=== PATIENT | male | born 1990 | race Caucasian/White ===

== ENCOUNTER 2016-09-30 06:32 | Day surgery (SDC) | payer SELFPAY ==
[2016-09-30] MEDS ORDERED: Lactated Ringer's 1,000 ML IV ONE ×2 (07:08→08:50)
[2016-09-30] MEDS ORDERED: Lidocaine 1% Inj (20ml) ONE (07:29)
[2016-09-30] MEDS ORDERED: metroNIDAZOLE 500mg/100ml NS 0 ML IVPB ONE (07:29)
[2016-09-30] MEDS ORDERED: Bupivacaine 0.5% Inj(30mL) ONE (07:29)
--- NOTE | 2016-09-30 07:49 | CP.SDSHP ---
Same Day Surgery H & P - History Proposed Procedure: anal fistulectomy - Allergies Allergies: Allergies No Known Allergies Allergy (Verified 09/10/14 00:06) - Physical Exam Vital Signs: Vital Signs 09/30/16 09/30/16 07:00 07:03 Temperature 98.5 F Pulse Rate 66 66 Respiratory 20 Rate Blood Pressure 133/82 O2 Sat by Pulse 99 Oximetry Neuro: WNL Heart: WNL Lungs: WNL GI: WNL - {Optional Preform as Required} Abdomen: WNL Rectal: Other (anal fistula sinus) EDGE STRIPPER: Other (small anal fistula, draiing) - Impression Impression: anal fistula, will do fistulectomy - Date & Time Date: 09/30/16 Time: 07:48 Short Stay Discharge - Short Stay Discharge Admitting Diagnosis/Reason for Visit: K60.3 Disposition: HOME/ ROUTINE Referrals: FAMILY PROVIDER,NO [Primary Care Provider] -
[2016-09-30] MEDS ORDERED: Midazolam 2 MG/2 ML VIAL ONE (07:51)
[2016-09-30] MEDS ORDERED: Propofol 10 mg/ml Inj (20 ML) ONE (07:51)
[2016-09-30] MEDS ORDERED: Dexamethasone 4 mg/1 ml ONE (08:05)
[2016-09-30] MEDS ORDERED: Lactated Ringer's 1,000 ML IV SCH (08:21)
[2016-09-30] MEDS ORDERED: Hydrogen Peroxide 3% Soln (480ml) TP ONE (08:30)
[2016-09-30] MEDS ORDERED: Bupivacaine 0.5% 50 ML IJ ONE (08:36)
--- NOTE | 2016-09-30 08:53 | PCM.SURG1 ---
Surgeon's Initial Post Op Note - Surgeon's Notes Surgeon: Ranjith Svp [employer]: Odin PGY3, Debbie PGY1 Type of Anesthesia: General LMA, Local Pre-Operative Diagnosis: Anal fistula Operative Findings: Fistula 3 o'clock position Post-Operative Diagnosis: same Operation Performed: fistulectomy Specimen/Specimens Removed: none Estimated Blood Loss: EBL {In ML}: 10 Blood Products Given: N/A Drains Used: No Drains Post-Op Condition: Good Date of Surgery/Procedure: 09/30/16 Time of Surgery/Procedure: 08:53
--- NOTE | 2016-09-30 08:54 | CP.SDSHP ---
Same Day Surgery H & P - Allergies Allergies: Allergies No Known Allergies Allergy (Verified 09/10/14 00:06) - Physical Exam Vital Signs: Vital Signs 09/30/16 09/30/16 07:00 07:03 Temperature 98.5 F Pulse Rate 66 66 Respiratory 20 Rate Blood Pressure 133/82 O2 Sat by Pulse 99 Oximetry Short Stay Discharge - Short Stay Discharge Admitting Diagnosis/Reason for Visit: K60.3 Disposition: HOME/ ROUTINE Referrals: FAMILY PROVIDER,NO [Primary Care Provider] - Additional Instructions (Diet, Activity): Sitz baths
[2016-09-30 09:44] VITALS: RESP 20
[2016-09-30 10:08] VITALS: TEMP 98
[2016-09-30 10:17] VITALS: O2SAT 96
[2016-09-30 11:49] VITALS: BP 110/70; PULSE 96
--- NOTE | 2016-10-26 19:43 | OP ---
PROCEDURE DATE: 09/30/2016 OPERATION PERFORMED: Anal fistula. SURGEON: Chang Kasper MD OIL WELL PERFORATOR OPERATOR: Dr. Mayorga and Dr. Lewis. ANESTHESIA: General LMA. PREOPERATIVE DIAGNOSIS: Anal fistula. POSTOPERATIVE DIAGNOSIS: Anal fistula. FINDINGS: Fistula at 3 o'clock position. ESTIMATED BLOOD LOSS: Minimal. OPERATING PROCEEDINGS: As follows; the patient was taken to the operating room, placed supine in the operating table. After induction of general anesthesia, the patient was placed on modified lithotomy position, prepped and draped in a standard surgical fashion. Digital rectal examination was performed. The patient then had a speculum placed within the anus. The patient then had a probe placed within the anal fistula and once that was done, the probe was removed and the patient had an Angiocath placed and had the fistula injected with a mixture of peroxide and once that was done, the fistula opening was cannulated and once the fistula opening was cannulated, the fistula was opened using the electrocautery. Care was taken to fulgurate the tissues inside the fistula. Once that was done, the area was inspected with hemostasis. There was no evidence of bleeding. A 10 mL of 0.25% Marcaine was then infiltrated into the wound. The patient was then awakened from anesthesia; transported to recovery room in satisfactory condition. Sponge, instruments, needle counts were correct at the end of the case. Chang Kasper MD
== END 2016-09-30 12:05 | disposition home or self-care (01) ==
LOC: H.OPSURG 06:32
PROVIDERS: ATTEND Surgery
DX: K60.3 Anal fistula (principal)